=== PATIENT | male | born 1965 ===

== ENCOUNTER 2023-05-11 11:44 | Emergency (ER) | payer SELFPAY ==
[2023-05-11] MEDS ORDERED: Nitroglycerin 0.4 MG Tab.SL SL ONE ×3 (12:04→13:10)
[2023-05-11] MEDS ORDERED: Ondansetron 4 MG/2 ML SDV IVPUSH ONE (12:04)
[2023-05-11] MEDS ORDERED: Aspirin 81 MG Tab.Chew PO ONE (12:04)
[2023-05-11 12:10] LABS: BASOPHILS PERCENT AUTO 0.8 % (0.0-1.0); EOSINOPHILS PERCENT AUTO 0.8 % (1.0-3.0); HEMATOCRIT 49.2 % (40.0-54.0); HEMOGLOBIN 16.5 g/dL (14.0-18.0); LYMPHOCYTES PERCENT AUTO 14.7 % (20.5-50.1); MEAN CORPUSCULAR HEMOGLOBIN 30.2 pg (27.0-34.0); MEAN CORPUSCULAR HGB CONC 33.5 g/dL (33.0-35.0); MEAN CORPUSCULAR VOLUME 90.1 fL (80-100); MONOCYTES PERCENT AUTO 8.6 % (2-8); NEUTROPHILS PERCENT AUTO 75.1 % (42.2-75.2); PLATELET COUNT,PLT 217 10^3/uL (150-450); RED BLOOD CELL COUNT 5.46 10^6/uL (4.6-6.2); WHITE BLOOD CELL COUNT,WBC 11.9 10^3/uL (5.0-10.0)
[2023-05-11 12:26] LABS: ALANINE AMINOTRANSFERASE,ALT 33 U/L (16-63); ALBUMIN 3.7 g/dL (3.4-5.0); ALKALINE PHOSPHATASE 178 U/L (46-116); ANION GAP 15.2 mEq/L (7-13); ASPARTATE AMNIOTRANSFERASE,AST 15 U/L (15-37); BILIRUBIN TOTAL 0.4 mg/dL (0.2-1.0); BLOOD UREA NITROGEN,BUN 18 mg/dL (7-18); BUN/CREATININE RATIO 14.4 (No establ ref range); CALCIUM 8.8 mg/dL (8.5-10.1); CARBON DIOXIDE,CO2 24 mmol/L (21-32); CHLORIDE,CL 104 mmol/L (98-107); CREATININE 1.25 mg/dL (0.70-1.30); EST CRCL DRUG DOSING (CG) 56.03 mL/min; ESTIMATED GFR 67 mL/min (>=60); GLUCOSE RANDOM 137 mg/dL (70-99); POTASSIUM,K 4.2 mmol/L (3.5-5.1); PROTEIN TOTAL,TP 7.5 g/dL (6.4-8.2); SODIUM,NA 139 mmol/L (136-145)
[2023-05-11 12:27] LABS: LIPASE > 250 U/L (16-77)
[2023-05-11] MEDS ORDERED: Morphine 4 MG/ML Syringe IVPUSH ONE ×2 (12:35→14:02)
[2023-05-11] MEDS ORDERED: Iopamidol 612 MG/ML 100 ML Bottle IUTERINE ONE (12:42)
[2023-05-11] MEDS ORDERED: Lactated Ringers 1,000 ML IV ONE (14:02)
[2023-05-11 14:56] LABS: ALBUMIN 3.5 g/dL (3.4-5.0); ANION GAP 14.8 mEq/L (7-13); BILIRUBIN TOTAL 0.4 mg/dL (0.2-1.0); BUN/CREATININE RATIO 14.7 (No establ ref range); CALCIUM 8.7 mg/dL (8.5-10.1); CREATININE 1.09 mg/dL (0.70-1.30); EST CRCL DRUG DOSING (CG) 64.26 mL/min; POTASSIUM,K 4.8 mmol/L (3.5-5.1); PROTEIN TOTAL,TP 7.1 g/dL (6.4-8.2)
[2023-05-11 16:13] LABS: CHOLESTEROL HDL 31 mg/dL (40-59); CHOLESTEROL LDL CALCULATED 119 mg/dL (0-100); CHOLESTEROL TOTAL 173 mg/dL (0-199); TRIGLYCERIDES 115 mg/dL (0-149)
[2023-05-11] MEDS ORDERED: Take Home: Acetaminophen/oxyCODONE 325-5 MG, 5 Tab Pack PO ONE (16:25)
== END 2023-05-11 16:43 | disposition home or self-care (01) ==
LOC: DL.ED 11:44
DX: K80.70 Calculus of gallbladder and bile duct without cholecystitis without obstruction (principal)
CPT/HCPCS: 36415; 71260; 74177; 80053; 80061; 80307; 83690; 84484; 85025; 93005; 96361; 96374; 96375; 96376; 99285; A9270; J2270; J2405; J7120; Q9967; 93010; 99284